=== PATIENT | male | born 1960 | race African-American/Black ===

== ENCOUNTER 2023-05-02 19:54 | Emergency (ER) | payer SELFPAY ==
[~2023-05-02] VITALS: Ht 180.3 cm; Wt 108.0 kg
[2023-05-02] MEDS ORDERED: GLUMETZA500 MG PO ×2 (20:08)
[2023-05-02] MEDS ORDERED: IBUPROFEN 800 MG TAB PO ONE (20:25)
[2023-05-02] MEDS ORDERED: Amoxicillin/Clavulanate Pota 875 MG TAB PO ONE (20:25)
[2023-05-02] MEDS ORDERED: AMOX-CLAV 875-1 EACH PO (20:27)
== END 2023-05-02 21:24 | disposition home or self-care (01) ==
LOC: ED 19:54 → EDBD 19:58 → ED 19:58
DX: H66.91 Otitis media, unspecified, right ear (principal); E11.9 Type 2 diabetes mellitus without complications